=== PATIENT | female | born 1975 | race Two or more races ===

== ENCOUNTER 2020-06-05 07:16 | Day surgery (SDC) | payer OTHER ==
[~2020-06-05 07:16] MED LIST: ZYRTEC10 M3 PO
[2020-06-05] MEDS ORDERED: DUI500 PO (11:23)
[2020-06-05] MEDS ORDERED: OXYC1TAB9 PO (11:24)
== END 2020-06-05 13:05 | disposition home or self-care (01) ==
LOC: CIR.AMB 07:16
PROVIDERS: ATTEND Orthopaedic Surgery Sports Medicine
DX: M75.01 Adhesive capsulitis of right shoulder (principal); M24.611 Ankylosis, right shoulder; Z20.822 Contact with and (suspected) exposure to COVID-19